=== PATIENT | male | born 1965 | race American Indian/Alaskan Native ===

== ENCOUNTER 2019-05-16 10:01 | Emergency (ER) | payer OTHER ==
[2019-05-16 11:27] VITALS: BP 196/112
--- NOTE | 2019-05-16 13:15 | Emergency Department Report ---
ED ENT HPI - General Chief complaint: Dental/Oral Stated complaint: TOOTHACHE Time Seen by Provider: 05/16/19 11:22 Source: patient Mode of arrival: Ambulatory Limitations: No Limitations - History of Present Illness Initial comments: This is a 53-year-old -[place] male who presents to the emergency room with dental pain on the left upper tooth #15. Patient reports tooth is loose and pain is worse with eating. He states there is swelling around tooth which make it uncomfortable to eat. He denies recent injury, difficulty swallowing, fever, chills, or sore throat. MD complaint: tooth pain Onset/Timin -: days(s) Location: tooth # (15) Severity: moderate Severity scale (0 -10): 6 Quality: aching Consistency: intermittent Improves with: none Worsens with: eating Context- Dental: history of dental caries, poor dental care Associated Symptoms: gum swelling, toothache. denies: fever, cough, pain with swallowing, sore throat, tinnitus, hearing loss, discharge from ear, rhinorrhea - Related Data Previous Rx's Medication Instructions Recorded Last Taken Type Amoxicillin [Trimox CAP] 500 mg PO BID #14 capsule 05/16/19 Unknown Rx Naproxen [Naprosyn] 500 mg PO BID PRN #20 tablet 05/16/19 Unknown Rx Allergies Allergy/AdvReac Type Severity Reaction Status Date / Time No Known Allergies Allergy Unverified 05/16/19 10:03 ED Dental HPI - General Chief complaint: Dental/Oral Stated complaint: TOOTHACHE Time Seen by Provider: 05/16/19 11:22 Source: patient Mode of arrival: Ambulatory Limitations: No Limitations - Related Data Previous Rx's Medication Instructions Recorded Last Taken Type Amoxicillin [Trimox CAP] 500 mg PO BID #14 capsule 05/16/19 Unknown Rx Naproxen [Naprosyn] 500 mg PO BID PRN #20 tablet 05/16/19 Unknown Rx Allergies Allergy/AdvReac Type Severity Reaction Status Date / Time No Known Allergies Allergy Unverified 05/16/19 10:03 ED Review of Systems ROS: Stated complaint: TOOTHACHE Other details as noted in HPI Constitutional: denies: chills, fever ENT: dental pain. denies: ear pain, throat pain Respiratory: denies: cough, shortness of breath, wheezing Cardiovascular: denies: chest pain, palpitations Gastrointestinal: denies: abdominal pain, nausea, diarrhea Skin: denies: rash, lesions Neurological: denies: headache, weakness, paresthesias Psychiatric: denies: anxiety, depression ED Past Medical Hx - Past Medical History Previous Medical History?: No - Surgical History Past Surgical History?: No - Social History Smoking Status: Current Some Day Smoker Substance Use Type: Alcohol - Medications Home Medications: Home Medications Medication Instructions Recorded Confirmed Last Taken Type Amoxicillin [Trimox CAP] 500 mg PO BID #14 capsule 05/16/19 Unknown Rx Naproxen [Naprosyn] 500 mg PO BID PRN #20 tablet 05/16/19 Unknown Rx ED Physical Exam - General Limitations: No Limitations General appearance: alert, in no apparent distress - ENT ENT exam: Present: mucous membranes moist, other (dental caries center #15, surrounding gingival swelling, tenderness, loose) - Neck Neck exam: Present: normal inspection - Respiratory Respiratory exam: Present: normal lung sounds bilaterally. Absent: respiratory distress - Cardiovascular Cardiovascular Exam: Present: regular rate, normal rhythm. Absent: systolic murmur, diastolic murmur, rubs, gallop - GI/Abdominal GI/Abdominal exam: Present: soft, normal bowel sounds - Neurological Exam Neurological exam: Present: alert, oriented X3 - Psychiatric Psychiatric exam: Present: normal affect, normal mood - Skin Skin exam: Present: warm, dry, intact, normal color. Absent: rash ED Course Vital Signs 05/16/19 10:33 Temperature 98.4 F Pulse Rate 77 Respiratory 18 Rate Blood Pressure 196/112 O2 Sat by Pulse 100 Oximetry ED Medical Decision Making - Medical Decision Making This is a 53-year-old male that presents with toothache for several days. Patient is stable and was examined by me. Given tramadol once in ER. Susceptible of dental caries and tooth is loose # 15. Start amoxicillin and naprosyn. Referral to emergency dental clinics. Discussed plan with patient. He agreed with ER plan. Discharged home stable. Follow up with dentist. Critical care attestation.: If time is entered above; I have spent that time in minutes in the direct care of this critically ill patient, excluding procedure time. ED Disposition Clinical Impression: Toothache, Dental caries, Loosening of tooth Disposition: DC-01 TO HOME OR SELFCARE Is pt being admited?: No Does the pt Need Aspirin: No Condition: Stable Instructions: Toothache (ED), Dental Caries (ED) Additional Instructions: Complete all days of antibiotic as prescribed. Take pain medication as prescribed. Follow up with Dentist from the referral list below. Prescriptions: Naproxen [Naprosyn] 500 mg PO BID PRN #20 tablet PRN Reason: Pain , Severe (7-10) Amoxicillin [Trimox CAP] 500 mg PO BID #14 capsule Referrals: [facility] [Outside] - 3-5 Days [facility] [Outside] - 3-5 Days [facility] [Outside] - 3-5 Days Forms: Work/School Release Form(ED) Time of Disposition: 13:20
[2019-05-16] MEDS ORDERED: IBUPROFEN PO ONE (13:24)
== END 2019-05-16 13:27 | disposition home or self-care (01) ==
LOC: ED 10:01
DX: K02.9 Dental caries, unspecified (principal); K08.89 Other specified disorders of teeth and supporting structures; F17.200 Nicotine dependence, unspecified, uncomplicated; Z79.899 Other long term (current) drug therapy
CPT/HCPCS: 99282

== ENCOUNTER 2021-04-14 11:53 | Emergency (ER) | payer SELFPAY ==
[2021-04-14 14:00] VITALS: BP 176/121
--- NOTE | 2021-04-14 14:08 | Emergency Department Report ---
Upper Extremity - [facility] Chief Complaint: Extremity Problem,Nontraumatic Stated Complaint: SWOLLEN(R)HAND Time Seen by Provider: 04/14/21 14:03 Upper Extremity: Right Shoulder, Right Wrist, Right Hand Occurred When: 1 Day Mechanism: Unsure Severity: severe Symptoms: Yes Pain with Movement, No Deformity, No Limited Range of Movement, No Numbness, No Weakness, No Swelling, No Bruising/Ecchymosis, No Laceration or Abrasion Other History: Chief complaint: Right hand wrist swelling. HPI: Is a 55-year-old male with no significant past medical history presents with right hand wrist swelling since yesterday morning. No known injury. He thought an insect may have bitten him. He woke up Thursday morning with redness warmth of the hand and right wrist mostly on the dorsal region. Severe pain. Home treatment not attempted. ED Review of Systems ROS: Stated complaint: SWOLLEN(R)HAND Other details as noted in HPI Constitutional: denies: fever Respiratory: denies: cough, shortness of breath Cardiovascular: denies: chest pain Musculoskeletal: joint swelling ED Past Medical Hx - Past Medical History Previous Medical History?: No - Surgical History Past Surgical History?: No - Social History Smoking Status: Current Some Day Smoker Substance Use Type: Alcohol - Medications Home Medications: Home Medications Medication Instructions Recorded Confirmed Last Taken Type Amoxicillin [Trimox CAP] 500 mg PO BID #14 capsule 05/16/19 Unknown Rx Naproxen [Naprosyn] 500 mg PO BID PRN #20 tablet 05/16/19 Unknown Rx Ibuprofen [Motrin 400 MG tab] 400 mg PO QID 5 Days #20 tablet 04/14/21 Unknown Rx Sulfamethoxazole/Trimethoprim 1 each PO BID 7 Days #14 tablet 04/14/21 Unknown Rx [Bactrim DS TAB] oxyCODONE /ACETAMINOPHEN [Percocet 1 tab PO Q6HR PRN #15 tablet 04/14/21 Unknown Rx 5/325] Upper Extremity Exam - Exam General: Vital signs noted. No distress. Alert and acting appropriately. Nontoxic pleasant steady gait Right dorsal wrist hand redness from the wrist to metacarpals, mild tenderness of the wrist and dorsal hand. Mild edema of the wrist and hand. Dorsally Head and Torso: No HEENT Abnormality, No Chest/Lungs Abnormality Shoulder Exam: Yes Normal Range of Motion in Shoulder, No Shoulder Tenderness, No Clavicle Tenderness, No Shoulder Deformity Arm Exam: No Arm/Humerus Tenderness, No Arm Deformity Elbow: Yes Normal Range of Motion in Elbow, No Elbow Tenderness, No Elbow Deformity Forearm: No Forearm Tenderness, No Forearm Deformity, No Pain with Pronation, No Pain with Supination Wrist: Yes Wrist Tenderness, Yes Normal ROM in Wrist, No Wrist Deformity, No Snuffbox Tenderness Hand: Yes Hand Tenderness, Yes Normal ROM in Digit(s), No Hand Deformity, No Digit Tenderness CMS Exam: Yes Normal Distal Pulses, Yes Normal Capillary Refill, Yes Normal Distal Sensation, No Broken Skin ED Course Vital Signs 04/14/21 14:00 Temperature 98 F Pulse Rate 108 H Respiratory 18 Rate Blood Pressure 176/121 [Right] O2 Sat by Pulse 98 Oximetry ED Medical Decision Making - Medical Decision Making Clinical impression: Pseudogout prescribed ibuprofen Percocet. Will cover for possible cellulitis with Bactrim. Refer to internal medicine physician. Critical care attestation.: If time is entered above; I have spent that time in minutes in the direct care of this critically ill patient, excluding procedure time. ED Disposition Clinical Impression: Pseudogout of right wrist, Cellulitis Disposition: - TO HOME OR SELFCARE Is pt being admited?: No Does the pt Need Aspirin: No Condition: Stable Instructions: Cellulitis, Adult, Calcium Pyrophosphate Deposition Prescriptions: Sulfamethoxazole/Trimethoprim [Bactrim DS TAB] 1 each PO BID 7 Days #14 tablet Ibuprofen [Motrin 400 MG tab] 400 mg PO QID 5 Days #20 tablet oxyCODONE /ACETAMINOPHEN [Percocet 5/325] 1 tab PO Q6HR PRN #15 tablet PRN Reason: Pain Referrals: AMADOR LARA MD [Staff Physician] - 3-5 Days
[2021-04-14] MEDS ORDERED: IBUPROFEN 800 MG TAB PO ONE (14:09)
== END 2021-04-14 14:27 | disposition home or self-care (01) ==
LOC: ED 11:53
DX: L03.113 Cellulitis of right upper limb (principal); M11.231 Other chondrocalcinosis, right wrist; F17.200 Nicotine dependence, unspecified, uncomplicated
CPT/HCPCS: 99281